=== PATIENT | male | born 1980 | race American Indian/Alaskan Native ===

== ENCOUNTER 2017-12-31 11:52 | Emergency (ER) | payer SELFPAY ==
[2017-12-31] MEDS ORDERED: Sodium Chloride 0.9% 10 ML Syringe FLUSH PRN (12:23)
[2017-12-31] MEDS ORDERED: Ondansetron 4 MG/2 ML SDV IVPUSH ONE (12:23)
[2017-12-31] MEDS ORDERED: Famotidine 20 MG/2 ML SDV IVPUSH ONE (12:23)
[2017-12-31] MEDS ORDERED: Sodium Chloride 0.9% 1,000 ML IV SCH (12:30)
--- NOTE | 2017-12-31 13:58 | EDM.PDOC ---
ED HPI GENERAL MEDICAL PROBLEM - General Chief Complaint: Chest Pain Stated Complaint: CHEST PAIN Time Seen by Provider: 12/31/17 12:05 Source of Information: Reports: Patient, Other (Highway patrolman) - History of Present Illness INITIAL COMMENTS - FREE TEXT/NARRATIVE: 37-year-old male was found in a ditch by highway patrolman a short time ago. The patrolman states he was just felt [place] of [facility]. Patrolman states she was not moving and he was concerned he might be . Of note he states there was a coyote "standing over him which left as the patrolman got closer to the patient. Patient was breathing and was arousable and subsequently transported here without further incident obviously intoxicated. He had a backpack and a bag with him and told the patrolman he was "walking to [place], 90 miles away from here where he lives. He apparently had gotten a ride here with either friends or girlfriend and "girlfriend kicked him out". He did complain of some chest discomfort to the patrolman and also did have some dry heaves but no actual vomiting. No chest or abdominal pain on arrival to ED. He is not diabetic, does not take any current medication. Middle Chest Pain Score (Numeric/FACES): 8 - Related Data Allergies Allergy/AdvReac Type Severity Reaction Status Date / Time No Known Allergies Allergy Verified 12/31/17 12:09 Home Meds: Home Meds Lisinopril 40 mg PO DAILY 12/31/17 [History] Past Medical History Cardiovascular History: Reports: Hypertension, Other (See Below) Other Cardiovascular History: scar to chest to check for hypertension; pt is not sure why the procedure was done. pt has scar to the left chest wall Musculoskeletal History: Reports: Other (See Below) Other Musculoskeletal History: left elbow surgery Psychiatric History: Reports: Anxiety Other Psychiatric History: is to be on medicatioin but not taking it Social & Family History - Tobacco Use Smoking Status *Q: Current Every Day Smoker Years of Tobacco use: 15 Packs/Tins Daily: 0.1 - Caffeine Use Caffeine Use: Reports: Soda - Recreational Drug Use Recreational Drug Use: No ED ROS GENERAL - Review of Systems Review Of Systems: See Below Constitutional: Reports: No Symptoms HEENT: Denies: Throat Pain Respiratory: Denies: Shortness of Breath, Pleuritic Chest Pain Cardiovascular: Reports: Chest Pain GI/Abdominal: Reports: Nausea, Vomiting (Dry heaves). Denies: Abdominal Pain Musculoskeletal: Reports: No Symptoms Neurological: Reports: Dizziness. Denies: Trouble Speaking, Weakness ED EXAM, GENERAL - Physical Exam Exam: See Below General Appearance: Alert, Other (At least moderately intoxicated, cooperative with exam, answering simple questions) Eye Exam: Bilateral Eye: PERRL Throat/Mouth: Normal Inspection, Normal Oropharynx Head: Atraumatic Neck: Supple Respiratory/Chest: No Respiratory Distress, Lungs Clear, Normal Breath Sounds GI/Abdominal: Soft, Non-Tender. No: Guarding Back Exam: No: CVA Tenderness (L), CVA Tenderness (R) Extremities: Normal Inspection, Normal Range of Motion Neurological: Alert, No Motor/Sensory Deficits Skin Exam: Warm, Dry, Normal Color Course - Vital Signs Last Recorded V/S: Last Vital Signs Temp 99.6 F 12/31/17 12:04 Pulse 97 12/31/17 12:04 Resp 20 12/31/17 12:04 BP 133/90 12/31/17 12:04 Pulse Ox 93 L 12/31/17 12:04 - Orders/Labs/Meds Orders: Active Orders 24 hr Category Date Time Status EKG 12 Lead [EKG Documentation Completion] [RC] STAT Care 12/31/17 12:23 Active Peripheral IV Care [RC] . DIRECTED Care 12/31/17 12:24 Active Sodium Chloride 0.9% [Normal Saline] 1,000 ml Med 12/31/17 12:30 Active IV ONETIME Sodium Chloride 0.9% [Saline Flush] Med 12/31/17 12:23 Active 10 ml FLUSH ASDIRECTED PRN Peripheral IV Insertion Adult [OM.PC] Stat Oth 12/31/17 12:23 Ordered Medication Orders Sodium Chloride (Normal Saline) 1,000 mls @ 999 mls/hr IV ONETIME EUGENIO Last Admin: 12/31/17 12:45 Dose: 999 mls/hr Sodium Chloride (Saline Flush) 10 ml FLUSH ASDIRECTED PRN PRN Reason: Keep Vein Open Last Admin: 12/31/17 12:46 Dose: 10 ml Labs: Laboratory Tests 12/31/17 12/31/17 Range/Units 12:30 12:30 WBC 3.89 L (4.23-9.07) K/mm3 RBC 4.60 L (4.63-6.08) M/mm3 Hgb 15.5 (13.7-17.5) gm/L Hct 46.0 (40.1-51.0) % MCV 100.0 H (79.0-92.2) fl MCH 33.7 H (25.7-32.2) pg MCHC 33.7 (32.2-35.5) g/dl RDW Std Deviation 48.8 H (35.1-43.9) fL Plt Count 122 L (163-337) K/mm3 MPV 9.7 (9.4-12.3) fl Neut % (Auto) 46.9 (34.0-67.9) % Lymph % (Auto) 44.0 (21.8-53.1) % [place] % (Auto) 8.0 (5.3-12.2) % Eos % (Auto) 0.3 L (0.8-7.0) Baso % (Auto) 0.8 (0.1-1.2) % Neut # (Auto) 1.83 (1.78-5.38) K/mm3 Lymph # (Auto) 1.71 (1.32-3.57) K/mm3 [place] # (Auto) 0.31 (0.30-0.82) K/mm3 Eos # (Auto) 0.01 L (0.04-0.54) K/mm3 Baso # (Auto) 0.03 (0.01-0.08) K/mm3 Sodium 144 (136-145) mEq/L Potassium 3.9 (3.5-5.1) mEq/L Chloride 106 (98-107) mEq/L Carbon Dioxide 26 (21-32) mEq/L Anion Gap 15.9 H (5-15) BUN 6 L (7-18) mg/dL Creatinine 0.8 (0.7-1.3) mg/dL Est Cr Clr Drug Dosing 115.90 mL/min Estimated GFR (MDRD) > 60 (>60) mL/min BUN/Creatinine Ratio 7.5 L (14-18) Glucose 157 H (74-106) mg/dL Calcium 8.5 (8.5-10.1) mg/dL Total Bilirubin 0.2 (0.2-1.0) mg/dL AST 77 H (15-37) U/L ALT 62 (16-63) U/L Alkaline Phosphatase 66 (46-116) U/L Total Protein 7.7 (6.4-8.2) g/dl Albumin 3.8 (3.4-5.0) g/dl Globulin 3.9 gm/dL Albumin/Globulin Ratio 1.0 (1-2) Ethyl Alcohol 0.31 (0.00) gm% Meds: Medications Generic Name Dose Route Start Last Admin Trade Name Freq PRN Reason Stop Dose Admin Sodium Chloride 1,000 mls @ 999 mls/hr 12/31/17 12:30 12/31/17 12:45 Normal Saline IV 999 mls/hr ONETIME EUGENIO Administration Sodium Chloride 10 ml 12/31/17 12:23 12/31/17 12:46 Saline Flush FLUSH 10 ml ASDIRECTED PRN Administration Keep Vein Open Discontinued Medications Generic Name Dose Route Start Last Admin Trade Name Freq PRN Reason Stop Dose Admin Famotidine 20 mg 12/31/17 12:23 12/31/17 12:49 Pepcid IVPUSH 12/31/17 12:24 20 mg ONETIME ONE Administration Ondansetron HCl 4 mg 12/31/17 12:23 12/31/17 12:45 Zofran IVPUSH 12/31/17 12:24 4 mg ONETIME ONE Administration - Re-Assessments/Exams Free Text/Narrative Re-Assessment/Exam: 12/31/17 14:31 Blood alcohol came back at 0.31. Give 1 L of fluid. The vomiting stopped after Zofran 4 mg IV. The [facility] patrolman notes that he was doing the dry heaving primarily when his nurse or I would enter the room. He was resting comfortably at time of discharge. Just been up to the bathroom a short time previously and did well with that. 2 emergent problem is apparent at this time. [facility] had several warrants out for his arrest so he will be going to [facility]. Departure - Departure Time of Disposition: 13:55 Disposition: Home, Self-Care 01 Condition: Fair Clinical Impression: Alcohol intoxication Qualifiers: Complication of substance-induced condition: uncomplicated Qualified Code(s): F10.920 - Alcohol use, unspecified with intoxication, uncomplicated Instructions: Alcohol Intoxication Referrals: PCP,None [Primary Care Provider] - Forms: ED Department Discharge Additional Instructions: Your blood alcohol was very high today at 0.31. Other labs checked were all relatively normal. You've been treated with 1 L of IV fluid and also Zofran IV which is a nausea medication. A screening medical exam has been done and no acute emergency condition is apparent at this time. Of note your blood alcohol was drawn about 2 hours ago and you are less intoxicated now from time of arrival. You were just up to the bathroom walking and did well with that. Avoid further alcohol. Drink plenty of water today to maintain hydration. Eat regular meals and snacks as tolerated. - My Orders Last 24 Hours: My Active Orders 12/31/17 12:23 EKG 12 Lead [EKG Documentation Completion] [RC] STAT Sodium Chloride 0.9% [Saline Flush] 10 ml FLUSH ASDIRECTED PRN Peripheral IV Insertion Adult [OM.PC] Stat 12/31/17 12:24 Peripheral IV Care [RC] . DIRECTED 12/31/17 12:30 Sodium Chloride 0.9% [Normal Saline] 1,000 ml IV ONETIME - Assessment/Plan Last 24 Hours: My Active Orders 12/31/17 12:23 EKG 12 Lead [EKG Documentation Completion] [RC] STAT Sodium Chloride 0.9% [Saline Flush] 10 ml FLUSH ASDIRECTED PRN Peripheral IV Insertion Adult [OM.PC] Stat 12/31/17 12:24 Peripheral IV Care [RC] . DIRECTED 12/31/17 12:30 Sodium Chloride 0.9% [Normal Saline] 1,000 ml IV ONETIME
== END 2017-12-31 14:17 | disposition home or self-care (01) ==
LOC: JD.ED 11:52
DX: F10.120 Alcohol abuse with intoxication, uncomplicated (principal); Y90.8 Blood alcohol level of 240 mg/100 ml or more; F17.210 Nicotine dependence, cigarettes, uncomplicated; I10 Essential (primary) hypertension
CPT/HCPCS: 36415; 80053; 85025; 93005; 96361; 96374; 96375; 99285; G0480; J2405; J3490; J7040; J7050; 99284